=== PATIENT | male | born 1940 | race American Indian/Alaskan Native ===

== ENCOUNTER 2017-11-25 10:24 | Inpatient (IN) | payer MEDICARE, OTHER ==
--- NOTE | 2017-11-25 10:45 | Emergency Department Report ---
<EMILIANO LAWSON - Last Filed: 11/25/17 10:44> ED Neuro Deficit HPI - General Chief Complaint: Neuro Symptoms/Deficit Stated Complaint: HIGH BLOOD PRESSURE Time Seen by Provider: 11/25/17 10:41 Source: patient, family Mode of arrival: Ambulatory Limitations: Physical Limitation - History of Present Illness Initial Comments: 77-year-old male is brought to the emergency department with stroke symptoms of several days' duration beginning last Thursday. - Related Data Home Medications: Home Medications Medication Instructions Recorded Confirmed Last Taken Bimatoprost 0.01%(Nf) [Lumigan 1 drop OU QHS 04/22/16 04/22/16 04/21/16 0.01%(Nf)] 1 Bisoprolol/Hctz [Ziac 2.5-6.25] 1 tab PO DAILY 04/22/16 04/22/16 04/22/16 106.25mg Brimonidine 0.15% [Alphagan P 1 drop OU BID 04/22/16 04/22/16 04/21/16 0.15%] 1 Lisinopril 40 mg PO DAILY 04/22/16 04/22/16 04/22/16 09:20 40mg Metformin HCl [Metformin] 1,000 mg PO BID 04/22/16 04/22/16 04/21/16 1000mg Pravastatin [Pravachol] 40 mg PO DAILY 04/22/16 04/22/16 04/21/16 40mg Saxagliptin HCl [Onglyza] 5 mg PO DAILY 04/22/16 04/22/16 04/21/16 5mg Suvorexant [Belsomra] 10 mg PO QHS 04/22/16 04/22/16 04/21/16 10mg glipiZIDE [Glipizide ER] 10 mg PO DAILY 04/22/16 04/22/16 04/21/16 10mg Allergies/Adverse Reactions: Allergies Allergy/AdvReac Type Severity Reaction Status Date / Time No Known Allergies Allergy Verified 04/22/16 09:07 ED Review of Systems ROS: Stated complaint: HIGH BLOOD PRESSURE Other details as noted in HPI ED Past Medical Hx - Past Medical History Previous Medical History?: Yes Hx Hypertension: Yes Hx Diabetes: Yes (II) - Surgical History Past Surgical History?: No - Social History Smoking Status: Never Smoker Substance Use Type: Prescribed - Medications Home Medications: Home Medications Medication Instructions Recorded Confirmed Last Taken Type Bimatoprost 0.01%(Nf) [Lumigan 1 drop OU QHS 04/22/16 04/22/16 04/21/16 History 0.01%(Nf)] 1 Bisoprolol/Hctz [Ziac 2.5-6.25] 1 tab PO DAILY 04/22/16 04/22/16 04/22/16 History 106.25mg Brimonidine 0.15% [Alphagan P 1 drop OU BID 04/22/16 04/22/16 04/21/16 History 0.15%] 1 Lisinopril 40 mg PO DAILY 04/22/16 04/22/16 04/22/16 09:20 History 40mg Metformin HCl [Metformin] 1,000 mg PO BID 04/22/16 04/22/16 04/21/16 History 1000mg Pravastatin [Pravachol] 40 mg PO DAILY 04/22/16 04/22/16 04/21/16 History 40mg Saxagliptin HCl [Onglyza] 5 mg PO DAILY 04/22/16 04/22/16 04/21/16 History 5mg Suvorexant [Belsomra] 10 mg PO QHS 04/22/16 04/22/16 04/21/16 History 10mg glipiZIDE [Glipizide ER] 10 mg PO DAILY 04/22/16 04/22/16 04/21/16 History 10mg ED Neuro Physical Exam - General Limitations: Physical Limitation ED Course Vital Signs 11/25/17 11/25/17 11/25/17 10:25 11:51 12:39 Temperature 97.2 F L Pulse Rate 87 76 68 Respiratory 20 16 Rate Blood Pressure 238/132 212/109 Blood Pressure 206/115 [Left] O2 Sat by Pulse 97 90 Oximetry - Lab Data Lab Results 11/25/17 11/25/17 11/25/17 Range/Units 10:38 10:38 10:38 WBC 5.2 (4.5-11.0) K/mm3 RBC 4.48 (3.65-5.03) M/mm3 Hgb 11.8 (11.8-15.2) gm/dl Hct 36.1 (35.5-45.6) % MCV 81 L (84-94) fl MCH 26 L (28-32) pg MCHC 33 (32-34) % RDW 14.9 (13.2-15.2) % Plt Count 208 (140-440) K/mm3 Lymph % (Auto) 26.5 (13.4-35.0) % [place] % (Auto) 10.1 H (0.0-7.3) % Eos % (Auto) 3.4 (0.0-4.3) % Baso % (Auto) 0.5 (0.0-1.8) % Lymph # 1.4 (1.2-5.4) K/mm3 [place] # 0.5 (0.0-0.8) K/mm3 Eos # 0.2 (0.0-0.4) K/mm3 Baso # 0.0 (0.0-0.1) K/mm3 Seg Neutrophils % 59.5 (40.0-70.0) % Seg Neutrophils # 3.1 (1.8-7.7) K/mm3 PT 14.4 (12.2-14.9) Sec. INR 1.06 (0.87-1.13) APTT 27.9 (24.2-36.6) Sec. Thrombin Time (15.1-19.6) Sec. Sodium 140 (137-145) mmol/L Potassium 4.5 (3.6-5.0) mmol/L Chloride 101.9 (98-107) mmol/L Carbon Dioxide 26 (22-30) mmol/L Anion Gap 17 mmol/L BUN 16 (9-20) mg/dL Creatinine 1.3 (0.8-1.5) mg/dL Estimated GFR > 60 ml/min BUN/Creatinine Ratio 12 % Glucose 83 (75-100) mg/dL POC Glucose (70-105) Calcium 9.2 (8.4-10.2) mg/dL Total Bilirubin (0.1-1.2) mg/dL Direct Bilirubin (0-0.2) mg/dL Indirect Bilirubin mg/dL AST (5-40) units/L ALT (7-56) units/L Alkaline Phosphatase (35-129) units/L Troponin T < 0.010 (0.00-0.029) ng/mL NT-Pro-B Natriuret Pep (0-900) pg/mL Total Protein (6.3-8.2) g/dL Albumin (3.9-5) g/dL Albumin/Globulin Ratio % 11/25/17 11/25/17 11/25/17 Range/Units 10:38 10:38 11:04 WBC (4.5-11.0) K/mm3 RBC (3.65-5.03) M/mm3 Hgb (11.8-15.2) gm/dl Hct (35.5-45.6) % MCV (84-94) fl MCH (28-32) pg MCHC (32-34) % RDW (13.2-15.2) % Plt Count (140-440) K/mm3 Lymph % (Auto) (13.4-35.0) % [place] % (Auto) (0.0-7.3) % Eos % (Auto) (0.0-4.3) % Baso % (Auto) (0.0-1.8) % Lymph # (1.2-5.4) K/mm3 [place] # (0.0-0.8) K/mm3 Eos # (0.0-0.4) K/mm3 Baso # (0.0-0.1) K/mm3 Seg Neutrophils % (40.0-70.0) % Seg Neutrophils # (1.8-7.7) K/mm3 PT (12.2-14.9) Sec. INR (0.87-1.13) APTT (24.2-36.6) Sec. Thrombin Time 14.3 L (15.1-19.6) Sec. Sodium (137-145) mmol/L Potassium (3.6-5.0) mmol/L Chloride (98-107) mmol/L Carbon Dioxide (22-30) mmol/L Anion Gap mmol/L BUN (9-20) mg/dL Creatinine (0.8-1.5) mg/dL Estimated GFR ml/min BUN/Creatinine Ratio % Glucose (75-100) mg/dL POC Glucose 67 L (70-105) Calcium (8.4-10.2) mg/dL Total Bilirubin 0.30 (0.1-1.2) mg/dL Direct Bilirubin < 0.2 (0-0.2) mg/dL Indirect Bilirubin 0.1 mg/dL AST 13 (5-40) units/L ALT 9 (7-56) units/L Alkaline Phosphatase 64 (35-129) units/L Troponin T (0.00-0.029) ng/mL NT-Pro-B Natriuret Pep 252.5 (0-900) pg/mL Total Protein 8.0 (6.3-8.2) g/dL Albumin 4.2 (3.9-5) g/dL Albumin/Globulin Ratio 1.1 % Critical care attestation.: If time is entered above; I have spent that time in minutes in the direct care of this critically ill patient, excluding procedure time. ED Disposition Clinical Impression: Hypertensive encephalopathy, Hypertensive crisis Disposition: OP ADMIT IP TO THIS HOSP Condition: Stable Referrals: PRIMARY CARE, [Primary Care Provider] - 3-5 Days <RAMONITA DE LA CRUZ - Last Filed: 11/25/17 12:48> ED Neuro Deficit HPI - History of Present Illness Location: altered Presenting Symptoms: Present: Unable to Speak Clearly, Altered Mental Status Place: home Severity: moderate Quality: improving Improves With: none Worsens With: none Context: gradual onset Associated Symptoms: denies other symptoms Treatments Prior to Arrival: none ED Review of Systems Comment: All other systems reviewed and negative Constitutional: denies: chills, fever Eyes: vision change ENT: denies: ear pain Respiratory: denies: cough, shortness of breath, wheezing Cardiovascular: denies: chest pain, palpitations, dyspnea on exertion Endocrine: no symptoms reported Gastrointestinal: denies: abdominal pain, nausea, vomiting, diarrhea Genitourinary: denies: urgency, dysuria, frequency Musculoskeletal: denies: back pain, joint swelling Skin: denies: rash, change in color Neurological: denies: headache, numbness Psychiatric: denies: anxiety, auditory hallucinations Hematological/Lymphatic: denies: easy bleeding, easy bruising ED Neuro Physical Exam - General Limitations: No Limitations General appearance: alert, in no apparent distress Suspected Stroke: Yes - Head Head exam: Present: atraumatic, normocephalic, normal inspection - Eye Eye exam: Present: normal appearance, PERRL, EOMI Pupils: Present: normal accommodation - ENT ENT exam: Present: normal exam, mucous membranes moist - Neck Neck exam: Present: normal inspection, full ROM. Absent: tenderness - Respiratory Respiratory exam: Present: normal lung sounds bilaterally. Absent: respiratory distress, wheezes - Cardiovascular Cardiovascular Exam: Present: regular rate - GI/Abdominal GI/Abdominal exam: Present: soft, normal bowel sounds. Absent: tenderness, guarding, rebound - Extremities Exam Extremities exam: Present: normal inspection, full ROM, normal capillary refill. Absent: tenderness - Back Exam Back exam: Present: full ROM. Absent: normal inspection - Neurological Exam Neurological exam: Present: alert, oriented X3, CN II-XII intact - NIHSS Assessment Interval: Baseline 1a. Level of Consciousness: alert 1b. LOC Questions: answers correctly 1c. LOC Commands: performs tasks correctly 2. Best Gaze: normal 3. Visual: no visual loss 4. Facial Palsy: normal symmetrical movement 5b. Motor Arm Right: no drift 5a. Motor Arm Left: no drift 6a. Motor Leg Left: no drift 6b. Motor Leg Right: no drift 7. Limb Ataxia: absent 8. Sensory: normal 9. Best Language: no aphasia 10. Dysarthria: normal 11. Extinction/Inattention: no abnormality Total Score: 0 Stroke Severity: No Stroke Symptoms - Psychiatric Psychiatric exam: Present: normal affect - Skin Skin exam: Present: warm, dry, intact, normal color ED Course - Reevaluation(s) Reevaluation #1: 11/25/17 12:47 Patient care was discussed with the hospitalist on-call Dr. Silva. Will admit patient to the hospital for further evaluation and management. - Lab Data Result diagrams: 11/25/17 10:38 11/25/17 10:38 - EKG Data EKG shows normal: sinus rhythm Rate: normal Interpretation: nonspecific ST-T wave leno 11/25/17 12:38 Prolonged [place] interval, first-degree AV block, LVH, Q waves in V1, V2 and V3. - Radiology Data Radiology results: report reviewed, image reviewed - Medical Decision Making Hypertensive Crisis. ED Disposition Is pt being admited?: Yes Does the pt Need Aspirin: Yes
[2017-11-25 10:49] LABS: Basophils % (Auto) 0.5 % (0.0-1.8); Eosinophils # (Auto) 0.2 K/mm3 (0.0-0.4); Eosinophils % (Auto) 3.4 % (0.0-4.3); Hematocrit 36.1 % (35.5-45.6); Hemoglobin 11.8 gm/dl (11.8-15.2); Lymphocytes # (Auto) 1.4 K/mm3 (1.2-5.4); Lymphocytes % (Auto) 26.5 % (13.4-35.0); Mean Corpuscular HGB Conc 33 % (32-34); Mean Corpuscular Hemoglobin 26 pg (28-32); Mean Corpuscular Volume 81 fl (84-94); Monocytes # (Auto) 0.5 K/mm3 (0.0-0.8); Monocytes % (Auto) 10.1 % (0.0-7.3); Platelet Count 208 K/mm3 (140-440); Red Blood Count 4.48 M/mm3 (3.65-5.03); Red Cell Distribution Width 14.9 % (13.2-15.2)
[2017-11-25 11:01] LABS: INR 1.06 (0.87-1.13)
[2017-11-25 11:02] LABS: Partial Thromboplastin Time 27.9 Sec. (24.2-36.6)
[2017-11-25 11:08] LABS: BUN/Creatinine Ratio 12; Blood Urea Nitrogen 16 mg/dL (9-20); Calcium 9.2 mg/dL (8.4-10.2); Hemolysis Index 3
--- NOTE | 2017-11-25 11:08 | Cat Scan Report ---
FINAL REPORT EXAM: CT HEAD/BRAIN WO CON HISTORY: NEURO DEFICITS, CONFUSION FOR 6 DAYS TECHNIQUE: CT of the head was performed. No intravenous contrast was administered. PRIORS: None. FINDINGS: There is moderate cerebral atrophy. There is mild ischemic change in the white matter. There is no evidence of intracranial hemorrhage. There is no edema, mass effect or midline shift. There are no abnormal extra-axial fluid collections. The ventricles are appropriate for brain volume. There is no skull fracture seen. The visualized aspects of the sinuses are clear. IMPRESSION: There is no acute intracranial abnormality identified.
[2017-11-25 11:11] LABS: Alanine Aminotransferase 9 units/L (7-56); Albumin 4.2 g/dL (3.9-5)
[2017-11-25 11:12] LABS: Bilirubin,Direct < 0.2 mg/dL (0-0.2)
--- NOTE | 2017-11-25 11:15 | XRay Report ---
Single view chest: History: Hypertension. Findings: Heart size is upper limit of normal. Trachea is midline. Faint ill-defined densities in the left cardiophrenic region. Normal CP angles. Impression: Faint densities left cardiophrenic region probably from confluence of vessels and mildly elevated left diaphragm, early infiltrate or discoid atelectasis cannot be excluded.
[2017-11-25] MEDS ORDERED: APRESOLINE IV ONE (12:17)
[2017-11-25] MEDS ORDERED: D50W (25GM) Syringe IV ONE ×2 (12:29→12:45)
[2017-11-25 15:15] LABS: Bilirubin,Urine NEG (Negative); Blood,Urine SM (Negative); Color,Urine Straw (Yellow); Protein,Urine <15 mg/dL mg/dL (Negative); Urobilinogen,Urine < 2.0 mg/dL (<2.0)
[2017-11-25 15:56] LABS: Amphetamine Screen,Urine PRESUMPTIVE NEGATIVE; Benzodiazepines Screen,Urine PRESUMPTIVE NEGATIVE; Cannabinoid Screen,Urine PRESUMPTIVE NEGATIVE; Cocaine Screen,Urine PRESUMPTIVE NEGATIVE; Methadone Screen,Urine PRESUMPTIVE NEGATIVE; Opiate Screen,Urine PRESUMPTIVE NEGATIVE
--- NOTE | 2017-11-25 17:41 | History and Physical Report ---
History of Present Illness Date of examination: 11/25/17 Date of admission: 11/25/17 12:48 Medications and Allergies Allergies Allergy/AdvReac Type Severity Reaction Status Date / Time No Known Allergies Allergy Verified 04/22/16 09:07 Home Medications Medication Instructions Recorded Confirmed Last Taken Type Bisoprolol/Hctz [Ziac 2.5-6.25] 1 tab PO DAILY 04/22/16 11/25/17 11/24/17 History Brimonidine 0.15% [Alphagan P 1 drop OU BID 04/22/16 11/25/17 11/24/17 History 0.15%] Lisinopril 40 mg PO DAILY 04/22/16 11/25/17 11/25/17 History Metformin HCl [Metformin] 1,000 mg PO BID 04/22/16 11/25/17 11/24/17 History Pravastatin [Pravachol] 40 mg PO DAILY 04/22/16 11/25/17 11/24/17 History Saxagliptin HCl [Onglyza] 5 mg PO DAILY 04/22/16 11/25/17 11/24/17 History Suvorexant [Belsomra] 10 mg PO QHS 04/22/16 11/25/17 11/24/17 History glipiZIDE [Glipizide ER] 10 mg PO BID 04/22/16 11/25/17 11/24/17 History Bimatoprost [Lumigan 0.01%] 1 drop OU QPM 11/25/17 11/25/17 11/24/17 History Ferrous Sulfate [Iron] 325 mg PO QDAY 11/25/17 11/25/17 11/24/17 History Exam - Constitutional Vitals: Temp Pulse Resp BP Pulse Ox 97.2 F L 84 16 145/77 100 11/25/17 10:25 11/25/17 16:28 11/25/17 14:36 11/25/17 14:36 11/25/17 14:36 Results - Labs CBC & Chem 7: 11/25/17 10:38 11/25/17 10:38 Labs: Laboratory Last Values WBC 5.2 K/mm3 (4.5-11.0) 11/25/17 10:38 RBC 4.48 M/mm3 (3.65-5.03) 11/25/17 10:38 Hgb 11.8 gm/dl (11.8-15.2) 11/25/17 10:38 Hct 36.1 % (35.5-45.6) 11/25/17 10:38 MCV 81 fl (84-94) L 11/25/17 10:38 MCH 26 pg (28-32) L 11/25/17 10:38 MCHC 33 % (32-34) 11/25/17 10:38 RDW 14.9 % (13.2-15.2) 11/25/17 10:38 Plt Count 208 K/mm3 (140-440) 11/25/17 10:38 Lymph % (Auto) 26.5 % (13.4-35.0) 11/25/17 10:38 [place] % (Auto) 10.1 % (0.0-7.3) H 11/25/17 10:38 Eos % (Auto) 3.4 % (0.0-4.3) 11/25/17 10:38 Baso % (Auto) 0.5 % (0.0-1.8) 11/25/17 10:38 Lymph # 1.4 K/mm3 (1.2-5.4) 11/25/17 10:38 [place] # 0.5 K/mm3 (0.0-0.8) 11/25/17 10:38 Eos # 0.2 K/mm3 (0.0-0.4) 11/25/17 10:38 Baso # 0.0 K/mm3 (0.0-0.1) 11/25/17 10:38 Seg Neutrophils % 59.5 % (40.0-70.0) 11/25/17 10:38 Seg Neutrophils # 3.1 K/mm3 (1.8-7.7) 11/25/17 10:38 PT 14.4 Sec. (12.2-14.9) 11/25/17 10:38 INR 1.06 (0.87-1.13) 11/25/17 10:38 APTT 27.9 Sec. (24.2-36.6) 11/25/17 10:38 Thrombin Time 14.3 Sec. (15.1-19.6) L 11/25/17 10:38 Sodium 140 mmol/L (137-145) 11/25/17 10:38 Potassium 4.5 mmol/L (3.6-5.0) 11/25/17 10:38 Chloride 101.9 mmol/L (98-107) 11/25/17 10:38 Carbon Dioxide 26 mmol/L (22-30) 11/25/17 10:38 Anion Gap 17 mmol/L 11/25/17 10:38 BUN 16 mg/dL (9-20) 11/25/17 10:38 Creatinine 1.3 mg/dL (0.8-1.5) 11/25/17 10:38 Estimated GFR > 60 ml/min 11/25/17 10:38 BUN/Creatinine Ratio 12 % 11/25/17 10:38 Glucose 83 mg/dL (75-100) 11/25/17 10:38 POC Glucose 78 (70-105) 11/25/17 15:24 Calcium 9.2 mg/dL (8.4-10.2) 11/25/17 10:38 Total Bilirubin 0.30 mg/dL (0.1-1.2) 11/25/17 10:38 Direct Bilirubin < 0.2 mg/dL (0-0.2) 11/25/17 10:38 Indirect Bilirubin 0.1 mg/dL 11/25/17 10:38 AST 13 units/L (5-40) 11/25/17 10:38 ALT 9 units/L (7-56) 11/25/17 10:38 Alkaline Phosphatase 64 units/L (35-129) 11/25/17 10:38 Total Creatine Kinase 159 units/L (55-170) 11/25/17 12:20 Troponin T < 0.010 ng/mL (0.00-0.029) 11/25/17 12:20 NT-Pro-B Natriuret Pep 310.7 pg/mL (0-900) 11/25/17 12:20 Total Protein 8.0 g/dL (6.3-8.2) 11/25/17 10:38 Albumin 4.2 g/dL (3.9-5) 11/25/17 10:38 Albumin/Globulin Ratio 1.1 % 11/25/17 10:38 Urine Color Straw (Yellow) 11/25/17 14:34 Urine Turbidity Clear (Clear) 11/25/17 14:34 Urine pH 7.0 (5.0-7.0) 11/25/17 14:34 Ur Specific [place] 1.001 (1.003-1.030) L 11/25/17 14:34 Urine Protein <15 mg/dl mg/dL (Negative) 11/25/17 14:34 Urine Glucose (UA) >=500 mg/dL (Negative) 11/25/17 14:34 Urine Ketones Neg mg/dL (Negative) 11/25/17 14:34 Urine Blood Sm (Negative) 11/25/17 14:34 Urine Nitrite Neg (Negative) 11/25/17 14:34 Urine Bilirubin Neg (Negative) 11/25/17 14:34 Urine Urobilinogen < 2.0 mg/dL (<2.0) 11/25/17 14:34 Ur Leukocyte Esterase Neg (Negative) 11/25/17 14:34 Urine WBC (Auto) 1.0 /HPF (0.0-6.0) 11/25/17 14:34 Urine RBC (Auto) 2.0 /HPF (0.0-6.0) 11/25/17 14:34 Urine Opiates Screen Presumptive negative 11/25/17 14:34 Urine Methadone Screen Presumptive negative 11/25/17 14:34 Ur Barbiturates Screen Presumptive negative 11/25/17 14:34 Ur Phencyclidine Scrn Presumptive negative 11/25/17 14:34 Ur Amphetamines Screen Presumptive negative 11/25/17 14:34 U Benzodiazepines Scrn Presumptive negative 11/25/17 14:34 Urine Cocaine Screen Presumptive negative 11/25/17 14:34 U Marijuana (THC) Screen Presumptive negative 11/25/17 14:34 Drugs of Abuse Note Disclamer 11/25/17 14:34
[2017-11-25] MEDS ORDERED: NON-FORMULARY (Saxagliptin Hcl [Onglyza] 5 MG) PO SCH (17:45)
[2017-11-25] MEDS ORDERED: NON-FORMULARY (Bimatoprost [Lumigan 0.01%] 1 DROP) OU SCH (18:00)
[2017-11-25] MEDS ORDERED: APRESOLINE IV PRN (18:32)
[2017-11-25] MEDS: COZAAR PO SCH (21:53)
[2017-11-25] MEDS: ZESTRIL PO SCH (21:53)
[2017-11-25] MEDS: FEOSOL PO SCH (21:54)
[2017-11-25] MEDS: GLUCOTROL XL PO SCH (21:54)
[2017-11-25] MEDS: COREG PO SCH (21:54)
[2017-11-25] MEDS: PRAVACHOL PO SCH (21:54)
[2017-11-25] MEDS: ALPHAGAN P 0.15% OU SCH (21:55)
[2017-11-25] MEDS: HumaLOG SUB-Q SCH (21:55)
[2017-11-25] MEDS ORDERED: NON-FORMULARY (Metformin Hcl [Metformin] 1,000 MG) PO SCH (22:00)
[2017-11-25] MEDS: ZIAC 2.5-6.25 PO SCH (23:00)
--- NOTE | 2017-11-26 07:33 | Event Note ---
Date: 11/25/17 See dictated H/p in reports
--- NOTE | 2017-11-26 09:09 | History and Physical Report ---
CHIEF COMPLAINT: 1. Altered sensorium. 2. High blood pressure. HISTORY OF PRESENT ILLNESS: A 77-year-old male brought in for altered sensorium and very high blood pressure. The patient has been noncompliant with his medications. The patient has stroke-like symptoms since the last 4 days, beginning 11/20/2017. The patient on antihypertensives and metformin for diabetes. Has been noncompliant. No loss of consciousness. No fever, no chills. No exacerbating or relieving factors. PAST MEDICAL HISTORY: Significant for hypertension, diabetes, and hyperlipidemia. PAST SURGICAL HISTORY: None. SOCIAL HISTORY: Does not smoke. No alcohol, no recreational drugs. FAMILY HISTORY: Significant for hypertension. CURRENT MEDICATIONS: On the chart. Including lisinopril 40 mg once a day and metformin 1000 mg twice a day and Januvia 5 mg once a day, 10 mg p.o. at bedtime, glipizide 10 mg p.o. daily, also eye drops for glaucoma. REVIEW OF SYSTEMS: Significant for altered sensorium. No focal weakness present. Also, very high blood pressure. Otherwise, review of systems is essentially negative. The patient became more coherent and alert after the blood pressure was brought under decent control. PHYSICAL EXAMINATION: GENERAL: Elderly male, cooperative during examination. VITAL SIGNS: Initial blood pressure was in the 230s/130, came down to 150/86 with IV hydralazine and p.o. medications. Temperature 98.6, pulse is 94, respirations of 18. HEENT: Unremarkable. Pupils equal and reactive. NECK: Supple, no lymphadenopathy, no thyromegaly. LUNGS: Clear to auscultation and percussion. Good air entry. CARDIOVASCULAR: S1, S2 heard. No gallop, no murmur, no rub. Apical impulse in left fifth intercostal space and midclavicular line. ABDOMEN: Soft and benign. No hepatosplenomegaly. No guarding, no rigidity. Hernial orifices are normal. EXTREMITIES: Good pedal pulses. No pedal edema. CENTRAL NERVOUS SYSTEM: Alert and oriented x 4, nonfocal exam. LABORATORY DATA: Significant for normal CBC, MCH and MCV are slightly low 81 and 26. Electrolytes are normal. LFTs are normal. Urine normal. Drug screen was normal. Blood glucose was 67, went up to 231. EKG shows LVH and strain pattern. A CT of the head was normal. Chest x-ray was normal. ASSESSMENT AND PLAN: 1. Hypertensive encephalopathy. Blood pressure to be treated aggressively. 2. Hypertensive emergency. The patient initiated on losartan, Coreg 12.5 mg b.i.d. and lisinopril 40 mg daily, in addition to hydralazine 10 mg IV q.4h. p.r.n. No Cardene drip was initiated as the blood pressure came down in the ER. 3. Type 2 diabetes. Continue metformin and glipizide and coverage. 4. Hyperlipidemia. Continue pravastatin 40 mg at bedtime. 5. Glaucoma. Continue eyedrops, latanoprost. 6. Deep venous thrombosis prophylaxis, heparin 5000 q.12h. JOB# [id number] VSAngela/NTS
[2017-11-26] MEDS: HumaLOG SUB-Q SCH ×4 (09:46→22:18)
[2017-11-26] MEDS: ALPHAGAN P 0.15% OU SCH ×2 (09:47→22:08)
[2017-11-26] MEDS: COZAAR PO SCH (09:48)
[2017-11-26] MEDS: GLUCOTROL XL PO SCH ×2 (09:49→17:39)
[2017-11-26] MEDS: GLUCOPHAGE PO SCH ×2 (09:49→17:39)
[2017-11-26] MEDS: ZESTRIL PO SCH (09:49)
[2017-11-26] MEDS: HEPARIN SUB-Q SCH ×2 (09:50→22:09)
[2017-11-26] MEDS: COREG PO SCH ×2 (09:50→22:09)
[2017-11-26] MEDS: TRADJENTA PO SCH (09:50)
[2017-11-26] MEDS: FEOSOL PO SCH (09:50)
[2017-11-26] MEDS: ZIAC 2.5-6.25 PO SCH (10:00)
--- NOTE | 2017-11-26 16:42 | Progress Note ---
Assessment and Plan Assessment and plan: Patient is a 77-year-old man who presented to the emergency department with complaints of altered mental status and elevated blood pressure Hypertensive encephalopathy Antihypertensives optimize, patient's mental status returning to baseline Hypertensive emergency Now resolved Hypertension Antihypertensives optimize, hydralazine PRN Type 2 diabetes Patient will continue metformin and glipizide, ADA diet, sliding scale insulin Accu-Cheks before meals and at bedtime Hyperlipidemia Continue statin therapy DVT prophylaxis Heparin History Interval history: Patient seen and examined with family members at bedside. He has no complaints at this time. Labs and nursing notes reviewed. Hospitalist Physical - Physical exam Narrative exam: General appearance: Present: no acute distress, well-nourished - EENT Eyes: Present: PERRL, EOM intact ENT: hearing intact, clear oral mucosa - Neck Present: supple, normal ROM - Respiratory Respiratory effort: normal Respiratory: bilateral: CTA - Cardiovascular Rhythm: regular Heart Sounds: Present: S1 & S2 - Extremities Extremities: no ischemia, No edema - Abdominal General gastrointestinal: soft, non-tender, non-distended - Integumentary Integumentary: Present: clear, warm, dry - Psychiatric Psychiatric: appropriate mood/affect, intact judgment & insight, cooperative - Neurologic Neurologic: CNII-XII intact, moves all extremities - Constitutional Vitals: Temp Pulse Resp BP Pulse Ox 97.8 F 68 20 171/94 99 11/26/17 08:24 11/26/17 10:00 11/26/17 10:00 11/26/17 09:50 11/26/17 10:00 Results - Labs CBC & Chem 7: 11/25/17 10:38 11/25/17 10:38 Labs: Laboratory Last Values WBC 5.2 K/mm3 (4.5-11.0) 11/25/17 10:38 RBC 4.48 M/mm3 (3.65-5.03) 11/25/17 10:38 Hgb 11.8 gm/dl (11.8-15.2) 11/25/17 10:38 Hct 36.1 % (35.5-45.6) 11/25/17 10:38 MCV 81 fl (84-94) L 11/25/17 10:38 MCH 26 pg (28-32) L 11/25/17 10:38 MCHC 33 % (32-34) 11/25/17 10:38 RDW 14.9 % (13.2-15.2) 11/25/17 10:38 Plt Count 208 K/mm3 (140-440) 11/25/17 10:38 Lymph % (Auto) 26.5 % (13.4-35.0) 11/25/17 10:38 [place] % (Auto) 10.1 % (0.0-7.3) H 11/25/17 10:38 Eos % (Auto) 3.4 % (0.0-4.3) 11/25/17 10:38 Baso % (Auto) 0.5 % (0.0-1.8) 11/25/17 10:38 Lymph # 1.4 K/mm3 (1.2-5.4) 11/25/17 10:38 [place] # 0.5 K/mm3 (0.0-0.8) 11/25/17 10:38 Eos # 0.2 K/mm3 (0.0-0.4) 11/25/17 10:38 Baso # 0.0 K/mm3 (0.0-0.1) 11/25/17 10:38 Seg Neutrophils % 59.5 % (40.0-70.0) 11/25/17 10:38 Seg Neutrophils # 3.1 K/mm3 (1.8-7.7) 11/25/17 10:38 PT 14.4 Sec. (12.2-14.9) 11/25/17 10:38 INR 1.06 (0.87-1.13) 11/25/17 10:38 APTT 27.9 Sec. (24.2-36.6) 11/25/17 10:38 Thrombin Time 14.3 Sec. (15.1-19.6) L 11/25/17 10:38 Sodium 140 mmol/L (137-145) 11/25/17 10:38 Potassium 4.5 mmol/L (3.6-5.0) 11/25/17 10:38 Chloride 101.9 mmol/L (98-107) 11/25/17 10:38 Carbon Dioxide 26 mmol/L (22-30) 11/25/17 10:38 Anion Gap 17 mmol/L 11/25/17 10:38 BUN 16 mg/dL (9-20) 11/25/17 10:38 Creatinine 1.3 mg/dL (0.8-1.5) 11/25/17 10:38 Estimated GFR > 60 ml/min 11/25/17 10:38 BUN/Creatinine Ratio 12 % 11/25/17 10:38 Glucose 83 mg/dL (75-100) 11/25/17 10:38 POC Glucose 189 (70-105) H 11/26/17 12:33 Calcium 9.2 mg/dL (8.4-10.2) 11/25/17 10:38 Total Bilirubin 0.30 mg/dL (0.1-1.2) 11/25/17 10:38 Direct Bilirubin < 0.2 mg/dL (0-0.2) 11/25/17 10:38 Indirect Bilirubin 0.1 mg/dL 11/25/17 10:38 AST 13 units/L (5-40) 11/25/17 10:38 ALT 9 units/L (7-56) 11/25/17 10:38 Alkaline Phosphatase 64 units/L (35-129) 11/25/17 10:38 Total Creatine Kinase 159 units/L (55-170) 11/25/17 12:20 Troponin T < 0.010 ng/mL (0.00-0.029) 11/25/17 12:20 NT-Pro-B Natriuret Pep 310.7 pg/mL (0-900) 11/25/17 12:20 Total Protein 8.0 g/dL (6.3-8.2) 11/25/17 10:38 Albumin 4.2 g/dL (3.9-5) 11/25/17 10:38 Albumin/Globulin Ratio 1.1 % 11/25/17 10:38 Urine Color Straw (Yellow) 11/25/17 14:34 Urine Turbidity Clear (Clear) 11/25/17 14:34 Urine pH 7.0 (5.0-7.0) 11/25/17 14:34 Ur Specific [place] 1.001 (1.003-1.030) L 11/25/17 14:34 Urine Protein <15 mg/dl mg/dL (Negative) 11/25/17 14:34 Urine Glucose (UA) >=500 mg/dL (Negative) 11/25/17 14:34 Urine Ketones Neg mg/dL (Negative) 11/25/17 14:34 Urine Blood Sm (Negative) 11/25/17 14:34 Urine Nitrite Neg (Negative) 11/25/17 14:34 Urine Bilirubin Neg (Negative) 11/25/17 14:34 Urine Urobilinogen < 2.0 mg/dL (<2.0) 11/25/17 14:34 Ur Leukocyte Esterase Neg (Negative) 11/25/17 14:34 Urine WBC (Auto) 1.0 /HPF (0.0-6.0) 11/25/17 14:34 Urine RBC (Auto) 2.0 /HPF (0.0-6.0) 11/25/17 14:34 Urine Opiates Screen Presumptive negative 11/25/17 14:34 Urine Methadone Screen Presumptive negative 11/25/17 14:34 Ur Barbiturates Screen Presumptive negative 11/25/17 14:34 Ur Phencyclidine Scrn Presumptive negative 11/25/17 14:34 Ur Amphetamines Screen Presumptive negative 11/25/17 14:34 U Benzodiazepines Scrn Presumptive negative 11/25/17 14:34 Urine Cocaine Screen Presumptive negative 11/25/17 14:34 U Marijuana (THC) Screen Presumptive negative 11/25/17 14:34 Drugs of Abuse Note Disclamer 11/25/17 14:34
[2017-11-26] MEDS: LATANOPROST 0.005% OU SCH (22:06)
[2017-11-26] MEDS: DIOVAN PO SCH (22:09)
[2017-11-26] MEDS: PRAVACHOL PO SCH (22:09)
[2017-11-27] MEDS: HumaLOG SUB-Q SCH ×3 (08:01→16:55)
--- NOTE | 2017-11-27 08:35 | Discharge Summary ---
<LESLIE PRADHAN - Last Filed: 11/27/17 14:57> Providers - Providers Date of Admission: 11/25/17 12:48 Date of discharge: 11/27/17 Attending physician: SOWMYA PAIGE MD Primary care physician: ERIC MAGAÑA Hospitalization Condition: Stable Hospital course: Patient is a 77-year-old man who presented to the emergency department with complaints of altered mental status and elevated blood pressure Head CT showed no acute intracranial abnormality identified. Patient was found to have hypertensive encephalopathy which was likely the underlying etiology of his altered mental status with initial blood pressure of 238/132. Antihypertensives were optimized and patient's mental status returned to baseline. The patient was clinically and hemodynamically stable for discharge back to his home. His antihypertensive regimen was adjusted and valsartan was initiated in place of lisinopril which was discontinued. Patient will resume all other home medications and follow up with his primary care provider within 5 days of discharge. Discharge diagnoses Hypertensive encephalopathy Hypertension Type 2 diabetes Hyperlipidemia Disposition: TO HOME OR SELFCARE Time spent for discharge: 32 minutes Core Measure Documentation - Palliative Care Palliative Care/ Comfort Measures: Not Applicable - Core Measures Any of the following diagnoses?: none Exam - Physical Exam Narrative exam: General appearance: Present: no acute distress, well-nourished - EENT Eyes: Present: PERRL, EOM intact ENT: hearing intact, clear oral mucosa - Neck Present: supple, normal ROM - Respiratory Respiratory effort: normal Respiratory: bilateral: CTA - Cardiovascular Rhythm: regular Heart Sounds: Present: S1 & S2 - Extremities Extremities: no ischemia, No edema - Abdominal General gastrointestinal: soft, non-tender, non-distended - Integumentary Integumentary: Present: clear, warm, dry - Psychiatric Psychiatric: appropriate mood/affect, intact judgment & insight, cooperative - Neurologic Neurologic: CNII-XII intact, moves all extremities - Constitutional Vitals: Temp Pulse Resp BP Pulse Ox 98.5 F 69 18 142/76 97 11/27/17 05:21 11/26/17 22:09 11/27/17 05:21 11/27/17 05:21 11/26/17 20:27 Plan Activity: fall precautions Diet: low fat, low cholesterol, low salt, diabetic Follow up with: PRIMARY CARE, [Referring] - 3-5 Days Prescriptions: Valsartan [Diovan] 160 mg PO BID #60 tablet <SOWMYA PAIGE - Last Filed: 11/27/17 15:57> Providers - Providers Date of Admission: 11/25/17 12:48 Attending physician: SOWMYA PAIGE MD Primary care physician: ERIC MAGAÑA Exam - Constitutional Vitals: Temp Pulse Resp BP Pulse Ox 97.8 F 69 24 130/67 95 11/27/17 07:45 11/27/17 14:46 11/27/17 10:00 11/27/17 14:46 11/27/17 10:00
[2017-11-27] MEDS: GLUCOTROL XL PO SCH ×2 (08:45→16:56)
[2017-11-27] MEDS: GLUCOPHAGE PO SCH ×2 (08:45→16:55)
[2017-11-27] MEDS ORDERED: HCTZ PO SCH (10:00)
[2017-11-27] MEDS: ALPHAGAN P 0.15% OU SCH (11:23)
[2017-11-27] MEDS: DIOVAN PO SCH (11:23)
[2017-11-27] MEDS: TRADJENTA PO SCH (11:24)
[2017-11-27] MEDS: HEPARIN SUB-Q SCH (11:24)
[2017-11-27] MEDS: FEOSOL PO SCH (11:24)
[2017-11-27] MEDS: COREG PO SCH (11:24)
[2017-11-27 14:47] VITALS: BP 130/67
[2017-11-27] MEDS: LATANOPROST 0.005% OU SCH (19:23)
== END 2017-11-27 19:23 | disposition home or self-care (01) | DRG 78 ==
LOC: ED 10:24 → 4A 12:48
PROVIDERS: ADMIT Internal Medicine; ATTEND Internal Medicine
DX: I67.4 Hypertensive encephalopathy (principal); I16.1 Hypertensive emergency; E11.9 Type 2 diabetes mellitus without complications; H40.9 Unspecified glaucoma; Z79.84 Long term (current) use of oral hypoglycemic drugs; Z79.899 Other long term (current) drug therapy; Z82.49 Family history of ischemic heart disease and other diseases of the circulatory system
CPT/HCPCS: 36415; 70450; 71045; 80048; 80074; 80307; 81001; 82550; 82962; 83880; 84484; 85025; 85610; 85670; 85730; 93005; 93010; 93306; 96374; 96375; A9270-GY; J0360; J1644; J1815